=== PATIENT | female | born 1975 | race Two or more races ===

== ENCOUNTER 2019-02-15 16:23 | Inpatient (IN) | payer OTHER ==
[~2019-02-15] VITALS: Ht 167.6 cm; Wt 66.7 kg
[2019-02-21] MEDS ORDERED: NORVASC5 MG PO (11:16)
[2019-03-01] MEDS ORDERED: OXYC1TAB9 PO (13:43)
[2019-03-01] MEDS ORDERED: DOCUSATE SODIU100 MG PO (13:43)
[2019-03-01] MEDS ORDERED: FERROUS SULFAT325 M1 PO (13:43)
[2019-03-01] MEDS ORDERED: SIMETHICONE125 M1 PO (13:43)
== END 2019-03-01 13:51 | disposition home or self-care (01) | DRG 742 ==
LOC: OB/GYN 02-26 06:33 → O/R 02-26 06:33 → SURG 02-26 07:15 → OB/GYN 02-26 10:40 → SURG 02-28 07:15 → OB/GYN 03-01 13:51
PROVIDERS: ADMIT Obstetrics & Gynecology
PROC: 0UT70ZZ Resection of Bilateral Fallopian Tubes, Open Approach (ICD-10-PCS; 2019-02-26)
PROC: 0UT90ZZ Resection of Uterus, Open Approach (ICD-10-PCS; principal; 2019-02-26 08:30)
DX: D25.1 Intramural leiomyoma of uterus (principal); D62 Acute posthemorrhagic anemia; D25.0 Submucous leiomyoma of uterus; D25.2 Subserosal leiomyoma of uterus; N92.0 Excessive and frequent menstruation with regular cycle; N72 Inflammatory disease of cervix uteri; I11.9 Hypertensive heart disease without heart failure; E78.1 Pure hyperglyceridemia